=== PATIENT | male | born 1965 | race Hispanic/Latino ===

== ENCOUNTER 2018-01-13 15:55 | Emergency (ER) | payer SELFPAY ==
--- NOTE | 2018-01-13 16:14 | ED PDOC ---
HPI: Psych/Substance Abuse Time Seen by Provider: 01/13/18 16:12 Chief Complaint (Nursing): Psychiatric Evaluation Chief Complaint (Provider): psych eval History Per: Patient (52 y/o male here with police for evaluation of grief. Patient was given news of son's secondary to drug overdose by [place] police. Police concerned as patient was grief stricken and had no support at that time. No SI/HI mentioned.) Past Medical History Reviewed: Historical Data, Nursing Documentation, Vital Signs - Family History Family History: States: No Known Family Hx - Allergies Allergies/Adverse Reactions: Allergies Allergy/AdvReac Type Severity Reaction Status Date / Time No Known Allergies Allergy Verified 01/13/18 16:01 Review of Systems ROS Statement: Except As Marked, All Systems Reviewed And Found Negative Physical Exam - Reviewed Nursing Documentation Reviewed: Yes Vital Signs Reviewed: Yes - Physical Exam Appears: Positive for: Well, Non-toxic, No Acute Distress Head Exam: Positive for: ATRAUMATIC, NORMAL INSPECTION, NORMOCEPHALIC Skin: Positive for: Normal Color, Warm, DRY Eye Exam: Positive for: EOMI, Normal appearance, PERRL ENT: Positive for: Normal ENT Inspection Neck: Positive for: Normal, Painless ROM Cardiovascular/Chest: Positive for: Regular Rate, Rhythm Respiratory: Positive for: CNT, Normal Breath Sounds Gastrointestinal/Abdominal: Positive for: Normal Exam, Soft Back: Positive for: Normal Inspection Extremity: Positive for: Normal ROM Neurologic/Psych: Positive for: Alert, Oriented Disposition - Clinical Impression Clinical Impression: Grief - Patient ED Disposition Is Patient to be Admitted: No - Disposition Referrals: [facility] [Outside] Disposition: Routine/Home Disposition Time: 17:06 Condition: FAIR Instructions: Dealing With , Adult
[2018-01-13 17:19] VITALS: BP 152/92; PULSE 87; RESP 26; TEMP 98; O2SAT 99
== END 2018-01-13 17:05 | disposition home or self-care (01) ==
LOC: H.ER 15:55
DX: Z63.4 Disappearance and death of family member (principal)